=== PATIENT | female | born 1985 | race Caucasian/White ===

== ENCOUNTER 2019-02-06 17:50 | Emergency (ER) | payer BC ==
[~2019-02-06] VITALS: Ht 170.2 cm; Wt 90.6 kg
[2019-02-06] MEDS ORDERED: ipratropium/albuterol 3ml nebule NEB ONE (18:05)
[2019-02-06] MEDS ORDERED: predniSONE 20 mg tablet PO ONE (18:10)
--- NOTE | 2019-02-06 18:12 | NUR ---
Patient is sitting up arms out aolmost tripoding. voice is tight sounding, pt taking slow deep breaths. breath sounds w/ inspiratory/ expiratory wheezing throughout.
[2019-02-06 19:39] VITALS: BP 134/80
[2019-02-06] MEDS ORDERED: AZIT250T PO (20:20)
[2019-02-06] MEDS ORDERED: PRED10TA PO (20:20)
== END 2019-02-06 20:43 | disposition home or self-care (01) ==
LOC: ER 17:50
DX: J45.901 Unspecified asthma with (acute) exacerbation (principal)
CPT/HCPCS: 71045; 94640; 94760; 99283; J7512